=== PATIENT | female | born 1990 | race Caucasian/White ===

== ENCOUNTER → 2021-07-09 | Day surgery (SDC) | payer OTHER ==
[~2021-07-09] MED LIST: BUPIVACAINE 0.25% 30ML SDV ONE; GLUCOSAMINE &1 EACH PO; HYDROMORPHONE 1MG/1ML INJ ONE; LIDOCAINE 1% W/EPINEPHRINE 20 ML VIAL ONE; LIDOCAINE 2% /EPINEPHRINE 20 ML SDV INJ ONE; MEPERIDINE HCL INJ 25 MG/ML VIAL ONE; OMEGA-31000 MG PO; PRENATAL PO; ROPIVACAINE 0.5% 5 MG/ML 30 ML SDV ONE; SODIUM CHLORIDE 0.9% 50ML 100 ML ONE
[2021-07-09 17:15] VITALS: BP 113/78
== END | disposition home or self-care (01) ==
LOC: OR 09:40
PROVIDERS: ATTEND Orthopaedic Surgery
DX: M22.41 Chondromalacia patellae, right knee (principal); S83.281A Other tear of lateral meniscus, current injury, right knee, initial encounter; S83.231A Complex tear of medial meniscus, current injury, right knee, initial encounter; M67.51 Plica syndrome, right knee; X58.XXXA Exposure to other specified factors, initial encounter
CPT/HCPCS: 27412; 27418; 29881; 81025; J0690; J1170; J2001; J2175; J2795; 76000